=== PATIENT | male | born 1960 | race Caucasian/White ===

== ENCOUNTER 2019-11-26 19:36 | Emergency (ER) | payer OTHER ==
[~2019-11-26] VITALS: Ht 172.7 cm; Wt 78.5 kg
[2019-11-26 19:40] VITALS: BP_SYST 150
--- NOTE | 2019-11-26 19:44 | NUR ---
Patient to ER bed 2 to gown for evaluation. Side rails up. Report given to FERNANDA ISSA.
--- NOTE | 2019-11-26 19:52 | NUR ---
ER Dr. NORWOOD at bedside examining patient.
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
[2019-11-26] MEDS ORDERED: KETOROLAC TROMETHAMINE 60 MG/2 ML VIAL IM ONE ×2 (20:14→20:15)
[2019-11-26] MEDS ORDERED: HYDROcodone/ACETAMIN 5-325 MG TAB (NORCO/ VICODIN) PO ONE (20:15)
--- NOTE | 2019-11-26 20:15 | NUR ---
Patient transported to radiology via gurney, accompanied by staff.
[2019-11-26] MEDS ORDERED: HYDROcodone/ACETAMIN 5-325 MG TAB (NORCO/ VICODIN) ONE ×2 (20:19→22:31)
--- NOTE | 2019-11-26 21:12 | NUR ---
PT RETURNED FROM IMAGING. PT STATES HIS PAIN IS NOW A 9/10.
[2019-11-26 21:27] LABS: BASOPHILS % (AUTO) 0.3 % (0.0-2.0); EOSINOPHILS # (AUTO) 0.1 K/uL (0.0-0.4); EOSINOPHILS % (AUTO) 0.4 % (0.0-4.0); HEMATOCRIT 47.1 % (36-54); HEMOGLOBIN 16.1 g/dL (14.0-18.0); LYMPHOCYTES # (AUTO) 1.3 K/uL (1.0-5.5); LYMPHOCYTES % (AUTO) 8.5 % (20.5-51.5); MEAN CORPUSCULAR HEMOGLOBIN 31 pg (27-31); MEAN CORPUSCULAR HGB CONC 34 % (32-36); MEAN CORPUSCULAR VOLUME 92 fL (79.0-98.0); MONOCYTES # (AUTO) 0.8 K/uL (0.0-1.0); MONOCYTES % (AUTO) 5.5 % (1.7-9.3); NEUTROPHILS % (AUTO) 85.3 % (40.0-70.0); PLATELET COUNT (AUTO) 326 K/uL (130-430); RED BLOOD CELL COUNT(AUTO) 5.15 MIL/uL (4.2-6.2); RED CELL DISTRIBUTION WIDTH 12.7 % (9.0-15.0); WHITE BLOOD COUNT (AUTO) 15.2 K/uL (4.8-10.8)
[2019-11-26] MEDS ORDERED: predniSONE 20 MG TABLET PO ONE (21:30)
--- NOTE | 2019-11-26 21:45 | NUR ---
SPOKE WITH OF PATIENT AND RECEIVED PTS HX AND MEDICATIONS.
--- NOTE | 2019-11-26 22:00 | NUR ---
PATIENT PLACED ON 3L NC PER MD ORDER. O2 SAT AT 97%.
[2019-11-26 22:03] LABS: CALCIUM 9.4 mg/dL (8.4-11.0); CREATININE 1.42 mg/dL (0.55-1.30); POTASSIUM 4.2 mmol/L (3.5-5.1)
[2019-11-26 22:08] LABS: TOTAL BILIRUBIN 0.9 mg/dL (0.0-1.0)
--- NOTE | 2019-11-26 22:08 | NUR ---
DR. NORWOOD AT BEDSIDE SPEAKING WITH PATIENT REGARDING RESULTS AND TRANSFER.
--- NOTE | 2019-11-26 22:30 | NUR ---
# 20 gauge angiocath placed to RAC. Use of asceptic technique. Opsite placed over site. Blood return noted. Flushed with 10 cc of normal saline. No evidence of infiltration noted. Patient tolerated well.
--- NOTE | 2019-11-26 22:52 | NUR ---
CALLED AND GAVE REPORT TO CHARGE NURSE OVER AT [facility] FRANCESCA GANNON.
--- NOTE | 2019-11-26 22:53 | NUR ---
Patient to be transferred to [facility]. Is being transferred due to higher level of care. Receiving facility has accepting physician and available space. ER physician has signed transfer form. Patient or responsible democrat has agreed to transfer and signed form. Patient belongings inventoried and will be sent with patient. Copy of nursing notes, lab reports, EKG, Physicians Orders and X-rays to be sent with patient. Report called to FRANCESCA at receiving facility. Receiving physician is KASHMIR. [facility] has been called for transfer. ETA is NOW.
--- NOTE | 2019-11-26 22:59 | NUR ---
REPORT GIVEN TO AMBROCIO WITH [facility] PRIOR TO TRANSFER TO [place].
[2019-11-26 23:00] VITALS: BP_SYST 137
== END 2019-11-26 22:59 | disposition short-term general hospital (02) ==
LOC: SED 19:36
DX: S42.001A Fracture of unspecified part of right clavicle, initial encounter for closed fracture (principal); S42.191A Fracture of other part of scapula, right shoulder, initial encounter for closed fracture; S22.41XA Multiple fractures of ribs, right side, initial encounter for closed fracture; J93.9 Pneumothorax, unspecified; Z88.2 Allergy status to sulfonamides; Z85.9 Personal history of malignant neoplasm, unspecified; V09.9XXA Pedestrian injured in unspecified transport accident, initial encounter; Y93.89 Activity, other specified; Y92.89 Other specified places as the place of occurrence of the external cause; Y99.8 Other external cause status
CPT/HCPCS: 36415; 70450; 71250; 72125; 74176; 73030; 73552; 80053; 85025; 96372; 99291; 99292; J1885; J7512